=== PATIENT | female | born 1940 | race Caucasian/White ===

== ENCOUNTER 2016-07-03 09:45 | Emergency (ER) | payer MEDICARE, BC ==
[2016-07-03 11:18] VITALS: BP 139/67
--- NOTE | 2016-07-03 11:45 | UC ---
Throat Pain/Nasal Justin HPI - HPI Summary HPI Summary: Nasal congestion, cough, fatigue, temp of 100 starting 4 days ago. Is traveling tomorrow, wants to be seen before that. Denies trouble breathing or hx of needing inhalers. - History of Current Complaint Chief Complaint: UCGeneralIllness Stated Complaint: SINUS COMPLAINT Time Seen by Provider: 07/03/16 11:07 Hx Obtained From: Patient ?: No Onset/Duration: Gradual Onset, Lasting Days Severity: Moderate Cough: Productive Associated Signs & Symptoms: Positive: Nasal Discharge. Negative: Fever, Vomiting, Rash - Allergies/Home Medications Allergies/Adverse Reactions: Allergies Allergy/AdvReac Type Severity Reaction Status Date / Time No Known Allergies Allergy Verified 07/03/16 11:02 Home Medications: Home Medications Aspirin [Aspirin 81 MG TAB] 81 mg PO DAILY 07/03/16 [History Confirmed 07/03/16] Calcium 1 tab PO DAILY 07/03/16 [History Confirmed 07/03/16] Gabapentin CAP(*) [Neurontin 100 mg CAP(*)] 400 mg PO BEDTIME 07/03/16 [History Confirmed 07/03/16] Multiple Vitamins W/ Minerals [Multivitamin & Mineral] 1 liq PO DAILY 07/03/16 [ History Confirmed 07/03/16] Naproxen Sodium 220 mg PO 07/03/16 [History] Potassium And Magnesium Supplement 1 dose PO DAILY 07/03/16 [History Confirmed 07/03/16] Pseudoephedrine HCl [Decongestant] 30 mg PO 07/03/16 [History] PMH/Surg Hx/FS Hx/Imm Hx Previously Healthy: Yes Respiratory History Of: Reports: COPD - Reports had "one episode of COPD a few years ago, no problems since." Cancer History Of: Denies: Breast Cancer - Surgical History Surgical History: Yes Surgery Procedure, Year, and Place: hysterectomy 2008. breast reduction 1993. tubal ligation - Family History Known Family History: Positive: Hypertension - Social History Alcohol Use: Daily Alcohol Amount: a glass of hard cider daily Substance Use Type: None Smoking Status (MU): Former Smoker When Did the Patient Quit Smoking/Using Tobacco: 47 years ago - Immunization History Most Recent Influenza Vaccination: Fall 2015 Review of Systems Constitutional: Negative Skin: Negative Eyes: Negative ENT: Nasal Discharge Respiratory: Cough Cardiovascular: Negative Gastrointestinal: Negative Genitourinary: Negative Motor: Negative Neurovascular: Negative Musculoskeletal: Negative Neurological: Negative Psychological: Negative All Other Systems Reviewed And Are Negative: Yes Physical Exam Triage Information Reviewed: Yes Appearance: Well-Appearing, No Pain Distress, Well-Nourished Vital Signs: Initial Vital Signs Temp 98.4 F 07/03/16 10:55 Pulse 81 07/03/16 10:55 Resp 18 07/03/16 10:55 BP 98/76 07/03/16 10:55 Pulse Ox 99 07/03/16 10:55 ENT: Positive: Hearing grossly normal, Pharynx normal, TMs normal - post-flush, Other: - bilat cerumen impaction. Negative: Tonsillar swelling, Tonsillar exudate Dental Exam: Normal Neck exam: Normal Neck: Positive: Supple, Nontender, No Lymphadenopathy Respiratory Exam: Normal Respiratory: Positive: Chest non-tender, Lungs clear, Normal breath sounds, No respiratory distress, No accessory muscle use Cardiovascular Exam: Normal Cardiovascular: Positive: RRR, No Murmur Musculoskeletal Exam: Normal Neurological Exam: Normal Neurological: Positive: Alert, Muscle Tone Normal Psychological Exam: Normal Skin Exam: Normal Throat Pain/Nasal Course/Dx - Differential Dx/Diagnosis Provider Diagnoses: URI, likely viral. bilat cerumen impaction Discharge - Discharge Plan Condition: Stable Disposition: HOME Patient Education Materials: Upper Respiratory Infection (ED), Cerumen Impaction (ED) Referrals: Trenton Boyd MD [Primary Care Provider] - Additional Instructions: Call or return if you develop increasing fever, shortness of breath, chest pain , bloody sputum, or otherwise worsen. If you have not improved at all after several days, contact your primary care physician or return here.
== END 2016-07-03 11:55 | disposition home or self-care (01) ==
LOC: UCEAST 09:45
DX: J06.9 Acute upper respiratory infection, unspecified (principal); H61.20 Impacted cerumen, unspecified ear; J44.9 Chronic obstructive pulmonary disease, unspecified; Z87.891 Personal history of nicotine dependence
CPT/HCPCS: 99213; G0463

== ENCOUNTER 2018-06-27 08:13 | Day surgery (SDC) | payer MEDICARE, BC ==
[~2018-06-27 08:13] MED LIST: Acetaminophen TAB* 325 MG PO PRN; Buffered Lidocaine 1% SYRIN* 1 ML/SYRINGE INTRADERM ONE
[2018-06-27] MEDS ORDERED: Midazolam* 1 MG/ML 5 ML VIAL (5 MG) ONE (10:34)
[2018-06-27] MEDS ORDERED: fentaNYL* 50 MCG/ML 2 ML VIAL (100 MCG VIAL) ONE (10:36)
[2018-06-27] MEDS ORDERED: Phenylephr/Ketorolac 1%/0.3% OPH DROP BTL ONE (10:58)
[2018-06-27 11:05] VITALS: BP 127/70
[2018-06-27] MEDS ORDERED: Ketorolac 0.5% OPHTH (NF) 0.5 % 5 ML BTL ONE (11:22)
[2018-06-27] MEDS ORDERED: Lidocaine 1%* 5 ML VIAL ONE (11:22)
[2018-06-27] MEDS ORDERED: Neomycin/Polymy/Dex OPHTH.OIN* 3.5 GM ONE (11:22)
[2018-06-27] MEDS ORDERED: Tropicamide 1% OPTH.SOL* BTL ONE (11:22)
[2018-06-27] MEDS ORDERED: Cyclopentolate 1% OPTH.SOL* 2 ML BTL ONE (11:22)
[2018-06-27] MEDS ORDERED: Phenylephrine 2.5% OPTH.SOL* 2 ML BTL ONE (11:22)
[2018-06-27] MEDS ORDERED: Tetracaine 0.5% OPTH.SOL 4 ML* 1 DROP BTL ONE (11:22)
--- NOTE | 2018-06-27 16:56 | OP ---
DATE OF OPERATION: 06/27/18 [facility] DATE OF : 42 SURGEON: Dr. Prince Ellis. COMPOSING MACHINE OPERATOR: None. ANESTHESIA: Topical with intravenous sedation. PRE-OP DIAGNOSIS: Cataract, right eye. POST-OP DIAGNOSIS: Cataract, right eye. OPERATIVE PROCEDURE: Phacoemulsification and cataract extraction with posterior chamber intraocular lens implant, right eye. COMPLICATIONS: None. BLOOD LOSS: None. DESCRIPTION OF PROCEDURE: The patient was brought to the operating room and received a small amount of intra-venous sedation. A drop of Tetracaine was placed in her right eye. She was prepped and draped in the usual sterile fashion for ophthalmic surgery and attention was directed to the right eye where a speculum was placed. A paracentesis was created at the 11 o'clock position and 0.1 cc of 1 percent preservative-free Lidocaine was injected into the anterior chamber followed by DisCoVisc. The eye was digitally stabilized while a 2.75 mm keratome was used to create a triplanar clear corneal incision at the 9 o'clock position. A continuous curvilinear capsulorrhexis was created with a cystotome and Utrata forceps. BSS on a cannula was used to hydrodissect the lens from the capsule. Phacoemulsification was performed in a divide-and- conquer technique to create four fragments which were removed. Residual cortical material was removed with irrigation and aspiration. DisCoVisc was used to inflate the capsular bag and an AU00T0 22.0 diopter lens was folded and inserted into the capsular bag. DisCoVisc was removed using irrigation and aspiration. BSS on a cannula was used to hydrate the corneal stroma and seal the wound. At the end of the case, the pupil was round and the lens was centered. The eye was of normal pressure and the wound was water tight. The speculum was removed and topical Maxitrol ointment was placed on the surface of the eye. The eye was closed, patched and shielded and the patient was sent to the recovery room in stable condition with post operative instructions and follow-up appointment given. [id number]/CPS #: [id number] MTDD
== END 2018-06-27 11:12 | disposition home or self-care (01) ==
LOC: OREAST 08:13
PROVIDERS: ATTEND Ophthalmology
DX: H25.11 Age-related nuclear cataract, right eye (principal); G62.9 Polyneuropathy, unspecified; Z85.6 Personal history of leukemia
CPT/HCPCS: A9270-GY; C9447; J2250; J3010; V2632

== ENCOUNTER 2018-07-04 09:29 | Day surgery (SDC) | payer MEDICARE, BC ==
[2018-07-04] MEDS ORDERED: Midazolam* 1 MG/ML 2 ML VIAL (2 MG) ONE (11:24)
[2018-07-04] MEDS ORDERED: fentaNYL* 50 MCG/ML 2 ML VIAL (100 MCG VIAL) ONE (11:25)
[2018-07-04 12:31] VITALS: BP 120/53
--- NOTE | 2018-07-04 12:40 | OP ---
DATE OF OPERATION: 07/04/18 [facility] DATE OF : 42 SURGEON: Dr. Prince Ellis. PUBLIC SAFETY TELECOMMUNICATOR: None. ANESTHESIA: Topical with intravenous sedation. PRE-OP DIAGNOSIS: Cataract, left eye. POST-OP DIAGNOSIS: Cataract, left eye. OPERATIVE PROCEDURE: Phacoemulsification and cataract extraction with posterior chamber intraocular lens implant, left eye. COMPLICATIONS: None. BLOOD LOSS: None. OPERATIVE FINDINGS: The patient was brought to the operating room and received a small amount of intravenous sedation. A drop of Tetracaine was placed in her left eye. She was prepped and draped in the usual sterile fashion for ophthalmic surgery and attention was directed to the left eye where a speculum was placed. A paracentesis was created at the 5 o'clock position and 0.1 cc of 1 percent preservative-free Lidocaine was injected into the anterior chamber followed by DisCoVisc. The eye was digitally stabilized while a 2.75 mm keratome was used to create a triplanar clear corneal incision at the 3 o'clock position. A continuous curvilinear capsulorrhexis was created with a cystotome and Utrata forceps. BSS on a cannula was used to hydrodissect the lens from the capsule. Phacoemulsification was performed in a [id number] technique to create four fragments which were removed. Residual cortical material was removed with irrigation and aspiration. DisCoVisc was used to inflate the capsular bag and an AU00T0 23.5 diopter lens was folded and inserted into the capsular bag. DisCoVisc was removed using irrigation and aspiration. BSS on a cannula was used to hydrate the corneal stroma and seal the wound. At the end of the case the pupil was round and the lens was centered. The eye was of normal pressure and the wound was water tight. The speculum was removed and topical Maxitrol ointment was placed on the surface of the eye. The eye was closed, patched and shielded and the patient was sent to the recovery room in stable condition with post operative instructions and follow-up appointment given. [id number]/CPS #: [id number]
[2018-07-04] MEDS ORDERED: Phenylephrine OPHTH SOL 2.5%* 2 ML ONE (14:49)
[2018-07-04] MEDS ORDERED: Tetracaine 0.5% OPTH.SOL 4 ML* 1 DROP BTL ONE (14:49)
[2018-07-04] MEDS ORDERED: Tropicamide 1% OPTH.SOL* BTL ONE (14:49)
[2018-07-04] MEDS ORDERED: Lidocaine 1%* 5 ML VIAL ONE (14:49)
[2018-07-04] MEDS ORDERED: Cyclopentolate 1% OPTH.SOL* 2 ML BTL ONE (14:49)
[2018-07-04] MEDS ORDERED: Neomycin/Polymy/Dex OPHTH.OIN* 3.5 GM ONE (14:49)
[2018-07-04] MEDS ORDERED: Ketorolac 0.5% OPHTH (NF) 0.5 % 5 ML BTL ONE (14:49)
== END 2018-07-04 12:26 | disposition home or self-care (01) ==
LOC: OREAST 09:29
PROVIDERS: ATTEND Ophthalmology
DX: H25.12 Age-related nuclear cataract, left eye (principal); Z85.6 Personal history of leukemia
CPT/HCPCS: A9270-GY; J2250; J3010; V2632